=== PATIENT | male | born 1950 | race Caucasian/White ===

== ENCOUNTER 2017-03-15 15:20 | Observation (INO) | payer MEDICARE, OTHER ==
[2017-03-15 16:51] LABS: BASO % 0.3 % (0.0-2.0); EOS % 0.1 % (0.0-4.0); HEMATOCRIT 40.7 % (35.0-51.0); LYMPH # 1.1 K/uL (1.0-4.3); LYMPH % 7.9 % (20.0-40.0); MEAN CORPUSCULAR HEMOGLOBIN 30.2 pg (27.0-31.0); MEAN CORPUSCULAR HGB CONC 33.9 g/dL (33.0-37.0); MONO # 0.7 K/uL (0.0-0.8); PLATELET COUNT 216 K/uL (130-400); RED CELL DISTRIBUTION WIDTH 13.6 % (11.5-14.5); WHITE BLOOD COUNT 13.5 K/uL (4.8-10.8)
[2017-03-15 16:56] LABS: CHLORIDE 104 mmol/L (98-107); POTASSIUM 3.8 mmol/L (3.6-5.2); SODIUM 143 mmol/L (132-148)
[2017-03-15 16:58] LABS: ALB/GLOB RATIO 1.4 (1.0-2.1); AST/SGOT 37 U/L (17-59); BILIRUBIN,TOTAL 0.7 mg/dL (0.2-1.3); CARBON DIOXIDE 28 mmol/L (22-30); GFR AFRICAN-AMERICAN > 60; TOTAL PROTEIN 7.4 g/dL (6.3-8.3)
[2017-03-15 16:59] LABS: ALCOHOL SERUM < 10 mg/dl (0-10); ALKALINE PHOSPHATASE 68 U/L (38-126); ALT/SGPT 31 U/L (21-72); BLOOD UREA NITROGEN 16 mg/dL (9-20); CALCIUM 9.6 mg/dl (8.6-10.4); GLUCOSE,RANDOM 189 mg/dL (75-110)
[2017-03-15 18:54] LABS: LARGE PLATELETS PRESENT; NEUTROPHIL 84 % (50-75); SMUDGE CELLS PRESENT; TOTAL CELLS COUNTED 100
[2017-03-15 19:01] LABS: RBC URINE 5 /hpf (0-3); URINE BACTERIA OCC (<OCC); URINE BILIRUBIN NEGATIVE (NEGATIVE); URINE BLOOD NEGATIVE (NEGATIVE); URINE COLOR Yellow (YELLOW); URINE GLUCOSE (UA) 1+ mg/dL (Normal); URINE KETONE 2+ mg/dL (NEGATIVE); URINE LEUKOCYTE ESTERASE NEG Leu/uL (Negative); URINE PROTEIN NEGATIVE (NEGATIVE); URINE UROBILINOGEN NORMAL mg/dL (0.2-1.0); WBC URINE 4 /hpf (0-5)
[2017-03-15 21:03] VITALS: O2SAT 100
--- NOTE | 2017-03-16 00:41 | C.PDOC ---
Time Seen by Provider: 03/15/17 15:59 Chief Complaint (Nursing): Psychiatric Evaluation History Per: Patient, EMS, Family Onset/Duration Of Symptoms: Days (1?) Current Symptoms Are (Timing): Still Present Suicide/Self Injury Attempted (Context): None Modifying Factor(s): None Severity: Moderate Associated Symptoms: Agitation, Paranoia, Other (Delusions) Additional History Per: Prior Records Past Medical History Reviewed: Historical Data, Nursing Documentation, Vital Signs Vital Signs: Last Vital Signs Temp 98.5 F 03/16/17 01:10 Pulse 94 H 03/16/17 01:10 Resp 22 03/16/17 01:10 BP 120/67 03/16/17 01:10 Pulse Ox 100 03/16/17 01:10 - Medical History PMH: HTN, Hypercholesterolemia, Parkinson's Disease Other Surgeries: Deep brain stimulators Family History: States: Unknown Family Hx - Social History Hx Alcohol Use: No Hx Substance Use: No - Immunization History Hx Tetanus Toxoid Vaccination: Yes Hx Influenza Vaccination: Yes Hx Pneumococcal Vaccination: Yes Review Of Systems Review Of Systems: ROS cannot be obtained secondary to pt's inabilty to answer questions. (Pt is psychotic) Physical Exam - Physical Exam Appears: Non-toxic, No Acute Distress Skin: Normal Color, Warm, Dry Head: Atraumatic Eye(s): bilateral: PERRL, EOMI Neck: Normal ROM, No Midline Cervical Tenderness, No Step Off Deformity, Supple Cardiovascular: Rhythm Regular Respiratory: Normal Breath Sounds, No Accessory Muscle Use Gastrointestinal/Abdominal: Soft, No Tenderness Extremity: Normal ROM, No Deformity Neurological/Psych: Normal Speech, Normal Motor, Normal Sensation, Inappropriate Response To Command, Other (Patient is delusional. He states that he is God. ) ED Course And Treatment - Laboratory Results Result Diagrams: 03/15/17 16:45 03/15/17 16:45 ECG: Interpreted By Me, Viewed By Me ECG Rhythm: Sinus Rhythm ECG Interpretation: No Acute Changes Rate From EC O2 Sat by Pulse Oximetry: 100 Pulse Ox Interpretation: Normal - Radiology CXR: Interpreted by Me, Viewed By Me CXR Interpretation: Yes: No Acute Disease, Other (Brain stimulators in place) Progress Note: Patient is medically stable for psychiatric evaluation and/or admission. Disposition - Disposition Disposition Time: 01:00 Condition: STABLE - Clinical Impression Clinical Impression: Psychosis Physician Patient Turnover Patient Signed Over To: Shraddha Wolf Handoff Comments: to f/up psychiatric screening by [facility].
[2017-03-16 07:11] VITALS: PULSE 86
--- NOTE | 2017-03-16 10:55 | RAD ---
PROCEDURE: CHEST RADIOGRAPH, 1 VIEW HISTORY: Psych medical clearance COMPARISON: None available. FINDINGS: LUNGS: Mild venous congestion. PLEURA: No pneumothorax or pleural fluid seen. CARDIOVASCULAR: Mild cardiomegaly. Battery pack stimulator devices in place projecting over the right and left david thoraces. OSSEOUS STRUCTURES: Degenerative changes in the spine and shoulders. VISUALIZED UPPER ABDOMEN: Normal. OTHER FINDINGS: None. IMPRESSION: Mild venous congestion.
[2017-03-16 11:18] VITALS: BP 133/70; RESP 20; TEMP 98.6
--- NOTE | 2017-03-17 11:50 | CARD ---
APPROVED REPORT EKG Measurement Heart [id number] UT 120P [id number] <Conclusion> Normal sinus rhythm. baseline artifacts
== END 2017-03-16 12:05 | disposition short-term general hospital (02) ==
LOC: C.ER 15:20 → C.9OBSV 03-16 01:00
PROVIDERS: ADMIT Emergency Medicine; ATTEND Emergency Medicine
DX: F29 Unspecified psychosis not due to a substance or known physiological condition (principal); G20 Parkinson's disease; I10 Essential (primary) hypertension; E78.00 Pure hypercholesterolemia, unspecified
CPT/HCPCS: 71010; 80053; 81001; 82948; 85025; 93005; 96372; 99285; G0378; G0480; J2060

== ENCOUNTER 2017-05-06 17:41 | Emergency (ER) | payer MEDICARE, OTHER ==
[2017-05-06 18:14] VITALS: RESP 20; O2SAT 98
--- NOTE | 2017-05-06 19:45 | C.PDOC ---
History Of Present Illness Patient was brought to the ED by for concerns of patient's reaction to new medications received. states "he crossed the street and refused to listen" to her. Patient was recently hospitalized in [facility] and had a deep brain stimulator placed. Patient denies suicidal or homicidal ideations. Time Seen by Provider: 05/06/17 19:44 Chief Complaint (Nursing): Medical Clearance History Per: Patient History/Exam Limitations: no limitations Onset/Duration Of Symptoms: Hrs Current Symptoms Are (Timing): Still Present Severity: None Pain Scale Rating Of: 0 Reports Recently: Treated By A Physician, Hospitalized Recent travel outside of the [place]: No Additional History Per: Family () Past Medical History Vital Signs: Last Vital Signs Temp 97.8 F 05/06/17 18:01 Pulse 92 H 05/06/17 18:01 Resp 20 05/06/17 18:01 BP 117/69 05/06/17 18:01 Pulse Ox 98 05/06/17 20:09 - Medical History PMH: HTN, Hypercholesterolemia, Parkinson's Disease Family History: States: Unknown Family Hx - Social History Hx Alcohol Use: No Hx Substance Use: No - Immunization History Hx Tetanus Toxoid Vaccination: Yes Hx Influenza Vaccination: Yes Hx Pneumococcal Vaccination: Yes Review Of Systems Constitutional: Negative for: Fever, Chills Cardiovascular: Negative for: Chest Pain Respiratory: Negative for: Shortness of Breath Gastrointestinal: Negative for: Nausea, Vomiting, Abdominal Pain Neurological: Negative for: Weakness, Numbness Physical Exam - Physical Exam Appears: Non-toxic, No Acute Distress Skin: Warm, Dry Eye(s): bilateral: Normal Inspection, EOMI Oral Mucosa: Moist Neck: Supple Chest: Symmetrical, No Deformity Cardiovascular: Rhythm Regular Respiratory: No Rales, No Rhonchi, No Wheezing Neurological/Psych: Oriented x3, Normal Speech, Normal Cognition, Normal Cranial Nerves, Normal Motor, Normal Sensation Gait: Steady ED Course And Treatment - Laboratory Results Result Diagrams: 05/06/17 19:54 05/06/17 19:54 O2 Sat by Pulse Oximetry: 98 (room air ) Progress Note: Patient states he feels fine and would like to go home. Patient was seen by lay out worker and cleared for discharge. Disposition Counseled Patient/Family Regarding: Studies Performed, Diagnosis, Need For Followup - Disposition Referrals: [facility] [Outside] Disposition: HOME/ ROUTINE Disposition Time: 19:45 Condition: FAIR Instructions: Anxiety (ED) Forms: [employer] (Swedish) - Clinical Impression Clinical Impression: Medical assessment - Scribe Statement The provider has reviewed the documentation as recorded by the Scribe Elizabeth Solis All medical record entries made by the Scribe were at my direction and personally dictated by me. I have reviewed the chart and agree that the record accurately reflects my personal performance of the history, physical exam, medical decision making, and the department course for this patient. I have also personally directed, reviewed, and agree with the discharge instructions and disposition.
[2017-05-06 19:59] LABS: BASO # 0.1 K/uL (0.0-0.2); BASO % 0.7 % (0.0-2.0); EOS # 0.2 K/uL (0.0-0.7); EOS % 1.7 % (0.0-4.0); HEMATOCRIT 38.7 % (35.0-51.0); LYMPH # 2.2 K/uL (1.0-4.3); LYMPH % 21.3 % (20.0-40.0); MEAN CELL VOLUME 89.6 fL (80.0-94.0); MEAN CORPUSCULAR HEMOGLOBIN 30.5 pg (27.0-31.0); MONO # 0.9 K/uL (0.0-0.8); MONO % 8.8 % (0.0-10.0); RED CELL DISTRIBUTION WIDTH 13.9 % (11.5-14.5); WHITE BLOOD COUNT 10.4 K/uL (4.8-10.8)
[2017-05-06 20:05] LABS: RBC URINE < 1 /hpf (0-3); URINE BACTERIA RARE (<OCC); URINE BILIRUBIN NEGATIVE (NEGATIVE); URINE BLOOD NEGATIVE (NEGATIVE); URINE COLOR Yellow (YELLOW); URINE GLUCOSE (UA) NORMAL (Normal); URINE KETONE NEGATIVE (NEGATIVE); URINE LEUKOCYTE ESTERASE NEG Leu/uL (Negative); URINE PROTEIN NEGATIVE (NEGATIVE); URINE UROBILINOGEN NORMAL mg/dL (0.2-1.0); WBC URINE 2 /hpf (0-5)
[2017-05-06 20:10] LABS: CHLORIDE 102 mmol/L (98-107); POTASSIUM 3.9 mmol/L (3.6-5.2); SODIUM 138 mmol/L (132-148)
[2017-05-06 20:12] LABS: ALB/GLOB RATIO 1.4 (1.0-2.1); ALKALINE PHOSPHATASE 62 U/L (38-126); AST/SGOT 21 U/L (17-59); BILIRUBIN,TOTAL 0.5 mg/dL (0.2-1.3); CARBON DIOXIDE 23 mmol/L (22-30); GFR AFRICAN-AMERICAN > 60
[2017-05-06 20:13] LABS: ALT/SGPT 33 U/L (21-72); BLOOD UREA NITROGEN 14 mg/dL (9-20); CALCIUM 9.5 mg/dl (8.6-10.4); GLUCOSE,RANDOM 111 mg/dL (75-110)
[2017-05-06 20:14] LABS: ALCOHOL SERUM < 10 mg/dl (0-10)
[2017-05-06 20:38] VITALS: BP 120/86; PULSE 81; TEMP 98
== END 2017-05-06 20:37 | disposition home or self-care (01) ==
LOC: C.ER 17:41
DX: Z00.00 Encounter for general adult medical examination without abnormal findings (principal)
CPT/HCPCS: 36415; 80053; 81001; 85025; 99283; G0480

== ENCOUNTER 2017-05-06 21:44 | Emergency (ER) | payer MEDICARE, OTHER ==
--- NOTE | 2017-05-06 22:18 | C.PDOC ---
Time Seen by Provider: 05/06/17 22:17 Chief Complaint (Nursing): Altered Mental Status History Per: Family History/Exam Limitations: None Onset/Duration Of Symptoms: Days Past Medical History Vital Signs: Last Vital Signs Temp 98.3 F 05/06/17 21:53 Pulse 81 05/06/17 21:53 Resp 20 05/06/17 21:53 BP 126/77 05/06/17 21:53 Pulse Ox 97 05/06/17 21:53 - Medical History PMH: HTN, Hypercholesterolemia, Parkinson's Disease Family History: States: Unknown Family Hx - Social History Hx Alcohol Use: No Hx Substance Use: No - Immunization History Hx Tetanus Toxoid Vaccination: Yes Hx Influenza Vaccination: Yes Hx Pneumococcal Vaccination: Yes ED Course And Treatment O2 Sat by Pulse Oximetry: 97 Disposition Counseled Patient/Family Regarding: Studies Performed, Diagnosis - Disposition Disposition Time: 22:18 Forms: [employer] (Guatemalan)
--- NOTE | 2017-05-06 22:22 | C.PDOC ---
History Of Present Illness states that patient started to deteriorate again after his discharge. and brought the pt back to the ed. I've spoke with with dr beckham, his neuro surgeon , who states that the patient was placed on zyprexa and nuplazid about 2 weeks ago after his psychotic episode. states that he is again starting to deteriorate, like last month. Time Seen by Provider: 05/06/17 22:17 Chief Complaint (Nursing): Altered Mental Status History Per: Family History/Exam Limitations: no limitations Onset/Duration Of Symptoms: Days Current Symptoms Are (Timing): Worse Suicide/Self Injury Attempted (Context): None Modifying Factor(s): None Severity: Moderate Pain Scale Rating Of: 4 Associated Symptoms: Anxiety, Agitation Involuntary Hold By: None Recent travel outside of the [place]: No Additional History Per: Family Past Medical History Reviewed: Historical Data, Nursing Documentation, Vital Signs Vital Signs: Last Vital Signs Temp 98.6 F 05/07/17 03:17 Pulse 72 05/07/17 03:17 Resp 20 05/07/17 03:17 BP 131/72 05/07/17 03:17 Pulse Ox 97 05/07/17 04:03 - Medical History PMH: HTN, Hypercholesterolemia, Parkinson's Disease Family History: States: No Known Family Hx - Social History Hx Alcohol Use: No Hx Substance Use: No - Immunization History Hx Tetanus Toxoid Vaccination: Yes Hx Influenza Vaccination: Yes Hx Pneumococcal Vaccination: Yes Review Of Systems Constitutional: Negative for: Fever, Chills Eyes: Negative for: Redness ENT: Negative for: Throat Pain Cardiovascular: Negative for: Chest Pain Respiratory: Negative for: Shortness of Breath Gastrointestinal: Negative for: Nausea, Vomiting Genitourinary: Negative for: Dysuria Musculoskeletal: Negative for: Back Pain Skin: Negative for: Rash Neurological: Negative for: Weakness Psych: Positive for: Psychosis Physical Exam - Physical Exam Appears: Non-toxic Skin: Warm, Dry Head: Normacephalic Eye(s): bilateral: Normal Inspection Oral Mucosa: Moist Neck: Supple Chest: Symmetrical Cardiovascular: Rhythm Regular Respiratory: No Rales, No Rhonchi, No Wheezing Gastrointestinal/Abdominal: Soft, No Tenderness Back: No CVA Tenderness Extremity: Normal ROM Extremity: Bilateral: Atraumatic Pulses: Left Dorsalis Pedis: Normal, Right Dorsalis Pedis: Normal Neurological/Psych: Oriented x3, Normal Speech, Normal Cognition Gait: Steady ED Course And Treatment O2 Sat by Pulse Oximetry: 97 Pulse Ox Interpretation: Normal Progress Note: spoke with dr beckham, his neurosurgeon. States he has again started to deteriorate. Had a full psychotic episode requiring hospitalization. Ok with 5 mg IM haldol. still awaiting bed availability ED OBSERVATION Date of observation admission: 05/07/17 Time of observation admission: 01:25 - Observation admission statement Patient is being placed in observation because:: psychosis - Goals of Observation Goals of observation are:: transfer to [place] - Progress Note Progress Note: 05/07/17 01:25 vitals stable 05/07/17 03:02 sleeping. vitals stable 05/07/17 05:37 vitals stable Disposition Counseled Patient/Family Regarding: Studies Performed, Diagnosis - Disposition Disposition Time: 22:19 Condition: FAIR Forms: [employer] ([place]ay[place] Islander) - Clinical Impression Clinical Impression: Psychosis Physician Patient Turnover Patient Signed Over To: Ermias Boss Handoff Comments: pending transfer to [facility]
[2017-05-07 06:29] VITALS: PULSE 73
[2017-05-07 07:41] VITALS: BP 133/72; RESP 16; TEMP 98; O2SAT 95
== END 2017-05-07 07:46 | disposition short-term general hospital (02) ==
LOC: C.ER 21:44
DX: F29 Unspecified psychosis not due to a substance or known physiological condition (principal)
CPT/HCPCS: 96372; 99285; J1630